=== PATIENT | female | born 1960 | race Caucasian/White ===

== ENCOUNTER 2020-11-10 12:27 | Emergency (ER) | payer BC, MEDICAID ==
[~2020-11-10] VITALS: Ht 154.9 cm; Wt 96.0 kg
--- NOTE | 2020-11-10 12:40 | NUR ---
LATE ENTRY DUE TO PATIENT CARE: PATIENT NIKHIL MONTELONGO WITH CHIEF C/O BLOOD IN URINE X1 DAY. PATIENT HAS BILATERAL NEPHROSTOMY TUBES, PLACED AUGUST 2020 AFTER PATIENT WAS HOSPITALIZED. PATIENT STATES SHE HAS ALSO BEEN CONSTIPATED. PATIENT REPORTS BLOOD ONLY FROM RIGHT NEPHROSTOMY TUBE, NOT THE LEFT AND HAS CLEARED UP TODAY. PATIENT DENIES PAIN, NO INTERVENTIONS EN ROUTE. PER EMS PATIENT'S VITALS STABLE EN ROUTE. NADN, URINE NOTED TO BE CLOUDY AND YELLOW IN BOTH NEPHROSTOMY TUBES, VSS, CALL LIGHT WITHIN REACH.
[2020-11-10 13:30] LABS: MICROSCOPIC AUTO
[2020-11-10 13:44] LABS: BASOPHILS % (AUTO) 1 % (0-1); EOSINOPHILS % (AUTO) 0 % (1-7); LYMPHOCYTES % (AUTO) 14 % (22-44); MEAN CORPUSCULAR HEMOGLOBIN 25.3 pg (27.0-34.8); MEAN CORPUSCULAR HGB CONC 32.8 g/dL (32.4-35.8); MEAN PLATELET VOLUME 6.6 fL (7.4-10.4); MONOCYTES % (AUTO) 7 % (2-9); NEUTROPHILS % (AUTO) 78 % (42-75); PLATELET COUNT 522 x10^3/uL (130-400); RED BLOOD COUNT 3.19 x10^6/uL (3.82-5.3); RED CELL DISTRIBUTION WIDTH 17.8 % (9.6-15.2)
[2020-11-10 13:45] LABS: MD NO
[2020-11-10 13:49] LABS: ALANINE AMINOTRANSFERASE 12 U/L (12-78); ALBUMIN 2.5 g/dL (3.4-5.0); ANION GAP 6 mmol/L (5-15); CALCIUM 8.9 mg/dL (8.5-10.1); CHLORIDE 105 mmol/L (98-107); CREATININE 1.68 mg/dL (0.55-1.02)
[2020-11-10 13:52] LABS: ALKALINE PHOSPHATASE 89 U/L (45-117); BILIRUBIN,TOTAL 0.3 mg/dL (0.2-1.0)
--- NOTE | 2020-11-10 14:22 | NUR ---
NEPHROSTOMY BAGS RETRIEVED FROM IR. BOTH BAGS CHANGED, PATIENT TOLERATED WELL. NADN, VSS, WATER PROVIDED, CALL LIGHT WITHIN REACH, NO FURTHER NEEDS AT THIS TIME.
--- NOTE | 2020-11-10 15:10 | NUR ---
PATIENT RESTING IN GURNEY WITH EYES CLOSED, RESP EVEN AND UNLABORED, VSS, CALL LIGHT WITHIN REACH.
--- NOTE | 2020-11-10 16:00 | NUR ---
ERMD AT BEDSIDE FOR EVALUATION.
--- NOTE | 2020-11-10 16:17 | NUR ---
PATIENT RESTING IN GURNEY, WATCHING TV, NADN, VSS, DAUGHTER AT BEDSIDE, CALL LIGHT WITHIN REACH, NO FURTHER NEEDS AT THIS TIME.
[2020-11-10 17:32] VITALS: BP 145/88
--- NOTE | 2020-11-10 17:33 | NUR ---
Patient and daughter given discharge instructions and prescription and they have confirmed that they understand the instructions, controlled substance contract signed. Patient wheeled from ED in stable condition with daughter at side to private vehicle.
== END 2020-11-10 17:34 | disposition home or self-care (01) ==
LOC: ED 13:50
DX: R31.0 Gross hematuria (principal); D06.9 Carcinoma in situ of cervix, unspecified; D64.9 Anemia, unspecified; K92.2 Gastrointestinal hemorrhage, unspecified; N28.9 Disorder of kidney and ureter, unspecified; K56.41 Fecal impaction; Z85.038 Personal history of other malignant neoplasm of large intestine
CPT/HCPCS: 36415; 80053; 81001; 85025; 87077; 87086; 99285

== ENCOUNTER 2020-12-10 10:44 | Day surgery (SDC) | payer BC, MEDICAID ==
[~2020-12-10] VITALS: Ht 154.9 cm; Wt 91.5 kg
[2020-12-10] MEDS ORDERED: CBD OIL PO (11:29)
[2020-12-10 11:30] VITALS: BP 119/74
[2020-12-10] MEDS ORDERED: SODIUM CHLORIDE 0.9% 1,000 ML IV SCH (11:30)
[2020-12-10] MEDS ORDERED: PLEASE ENTER HEIGHT AND WEIGHT MC SCH (12:00)
[2020-12-10] MEDS ORDERED: FENTANYL PF 100 MCG/2ML ONE (12:38)
[2020-12-10] MEDS ORDERED: NALOXONE 1 MG/ML, 2ML ONE (12:38)
[2020-12-10] MEDS ORDERED: MIDAZOLAM 1 MG/ML, 5ML ONE (12:38)
[2020-12-10] MEDS ORDERED: FLUMAZENIL 0.1 MG/1 ML, 5ML ONE (12:38)
[2020-12-10] MEDS ORDERED: LIDOCAINE 1%, 10ML ONE (12:41)
== END 2020-12-10 14:55 | disposition home or self-care (01) ==
LOC: OUT 10:44 → EDSTATUS 12:00 → OUT 14:55
PROVIDERS: ATTEND Specialist
DX: C19 Malignant neoplasm of rectosigmoid junction (principal); F17.210 Nicotine dependence, cigarettes, uncomplicated; Z79.82 Long term (current) use of aspirin; Z79.891 Long term (current) use of opiate analgesic; Z79.899 Other long term (current) drug therapy; Z85.038 Personal history of other malignant neoplasm of large intestine; Z92.21 Personal history of antineoplastic chemotherapy; Z98.890 Other specified postprocedural states; Z83.3 Family history of diabetes mellitus
CPT/HCPCS: 50435; 99156; C1729; C1769; J2250; J3010; J7030; J2310

== ENCOUNTER 2021-07-04 03:41 | Emergency (ER) | payer MEDICAID ==
[~2021-07-04] VITALS: Ht 154.9 cm; Wt 65.0 kg
[~2021-07-04 03:41] MED LIST: CBD OIL PO
--- NOTE | 2021-07-04 03:44 | NUR ---
KRYSTA ([facility]) [phone]
--- NOTE | 2021-07-04 04:26 | NUR ---
Dr. Isaac to bedside to evaluate pt.
[2021-07-04] MEDS ORDERED: ONDANSETRON 2MG/ML, 2ML ONE (04:29)
[2021-07-04] MEDS ORDERED: MORPHINE SULFATE 4 MG/ML, 1ML ONE (04:29)
[2021-07-04] MEDS ORDERED: ONDANSETRON 2MG/ML, 2ML IVPush ONE (04:30)
[2021-07-04] MEDS ORDERED: MORPHINE SULFATE 4 MG/ML, 1ML IVPush PRN (04:30)
--- NOTE | 2021-07-04 04:58 | NUR ---
Linen change performed on pt, soiled self with loose BM. Placed Mepilex on coccyx. Toelrated well. Denies further needs at this time. call carolina within reach.
--- NOTE | 2021-07-04 07:03 | NUR ---
Report given to LAURYN Boles
[2021-07-04] MEDS ORDERED: LIDOCAINE 1%, 10ML ONE ×2 (07:19→08:02)
[2021-07-04] MEDS ORDERED: FLUMAZENIL 0.1 MG/1 ML, 5ML ONE (07:41)
[2021-07-04] MEDS ORDERED: MIDAZOLAM 1 MG/ML, 5ML ONE (07:41)
[2021-07-04] MEDS ORDERED: FENTANYL PF 100 MCG/2ML ONE (07:41)
[2021-07-04] MEDS ORDERED: NALOXONE 1 MG/ML, 2ML ONE (07:41)
--- NOTE | 2021-07-04 07:54 | NUR ---
PT TO IR VIA [facility]
--- NOTE | 2021-07-04 08:31 | NUR ---
pt returned from ir. denies nausea. pain 3/10 pain. a&ox4. vss. dressings clean and dry. tubes w/o obstruction nor kinks. will cont to monitor and wean off oxygen
--- NOTE | 2021-07-04 09:02 | NUR ---
ATTEMPT TO CALL SON. NO ANSWER AT THIS TIME
--- NOTE | 2021-07-04 09:05 | NUR ---
LEFT MESSAGE ON SON VOICEMAIL
--- NOTE | 2021-07-04 09:20 | NUR ---
CALLED [facility] PER PT REQUEST. CONTACT NUMBER IN DEMOGRAPHICS. LEFT MESSAGE AT THIS TIME
--- NOTE | 2021-07-04 09:28 | NUR ---
CALLED [facility] WHOM PT IS ESTABLISHED. TALKED WITH BENTLEY. RECEIVED CONTACT INFO FOR SON (SHADY REYNOSO) [phone]
--- NOTE | 2021-07-04 09:29 | NUR ---
CALLED NUMBER PROVIDED FOR EMORY CRAUSO [phone]. INCORRECT NUMBER
--- NOTE | 2021-07-04 09:37 | NUR ---
DISCUSSED TRANSPORT AND POSSIBLITY OF TRAIN SYSTEM OPERATOR AT HOME WHEN PT ARRIVES. AWAITING F/U CALL FROM BENTLEY AT [facility]
--- NOTE | 2021-07-04 09:52 | NUR ---
BENTLEY FROM [facility] FOLLOWED UP VIA TELEPHONE. BENTLEY WAS ABLE TO CONTACT THEIR SHADE MAKER AISHWARYA WHOM WAS ALSO UNABLE TO CONTACT PT SON DIANA.
--- NOTE | 2021-07-04 10:00 | NUR ---
THUY ORTIZ RETURNED PHONE CALL AT THIS TIME. WILL BE HOME IN 20 MIN.
--- NOTE | 2021-07-04 11:14 | NUR ---
ATTEMPT TO F/U WITH SON DIANA. DID NOT ANSWER PHONE. PT TO GO HOME VIA [facility] AT 1400
[2021-07-04 11:23] VITALS: BP 127/82
== END 2021-07-04 12:21 | disposition home or self-care (01) ==
LOC: ED 06:07
DX: N99.522 Malfunction of incontinent external stoma of urinary tract (principal); M79.661 Pain in right lower leg; R06.02 Shortness of breath; F17.200 Nicotine dependence, unspecified, uncomplicated; W06.XXXA Fall from bed, initial encounter; Y93.89 Activity, other specified; Y92.89 Other specified places as the place of occurrence of the external cause; Y99.8 Other external cause status
CPT/HCPCS: 50432; 50435; 73502; 96374; 96375; 99156; 99157; 99285; C1729; C1769; J2250; J2270; J2405; J3010; J3490; J2310